=== PATIENT | female | born 1970 | race Caucasian/White ===

== ENCOUNTER 2020-04-18 08:19 | Emergency (ER) | payer MEDICAID ==
[~2020-04-18] VITALS: Ht 170.2 cm; Wt 104.5 kg
[~2020-04-18 08:19] MED LIST: NO HOME MEDS
[2020-04-18 08:22] VITALS: BP 163/109
== END 2020-04-18 10:22 | disposition home or self-care (01) ==
LOC: ER 08:19
DX: B34.9 Viral infection, unspecified (principal); F17.200 Nicotine dependence, unspecified, uncomplicated; I25.10 Atherosclerotic heart disease of native coronary artery without angina pectoris; Z88.0 Allergy status to penicillin; Z20.828 Contact with and (suspected) exposure to other viral communicable diseases
CPT/HCPCS: 36415; 87635; 99283